=== PATIENT | male | born 1960 | race African-American/Black ===

== ENCOUNTER 2016-08-25 17:20 | Emergency (ER) | payer OTHER ==
[~2016-08-25 17:20] MED LIST: Z.0.NO CURRENT MEDS
--- NOTE | 2016-08-25 17:29 | PD ---
Physical Exam Time Seen by Provider: 17:27 Narrative 55yo M c/o R upper arm pain x 3 weeks. Denies injury. Patient seen in triage. VS reviewed. Awaiting bed placement. MDM Supervised Visit with GERSON: Karla Rosales Aug 25, 2016 17:29
[2016-08-25 17:33] VITALS: BP 153/73; PULSE 95; RESP 18; TEMP 98.3; O2SAT 97
--- NOTE | 2016-08-25 18:47 | PD ---
HPI . Right arm pain for 3 weeks, worse over the past 3 days Chief Complaint: Abnormal Results Time Seen by Provider: 18:47 Travel History International Travel<30 days: No Contact w/Intl Traveler<30days: No Traveled to known affect area: No History of Present Illness HPI 55-year-old male who is a poor historian here with complaints of right upper extremity for the past 3 weeks. Patient tells me that he does not recall an exact injury, however 3 days ago he was trying to close his car door and there was some kind of issue with closing in and he somehow may have hurt his arm. He is saying this has been going on for 3 weeks and he's had swelling and pain in this upper extremity. He rates the pain as severe and denies any radiation other than from the right shoulder down to the tips of the fingers. He denies any chest pain or shortness of breath. He has no other complaints. His cc states he is here for abnormal labs and he tells me he is not here for anything other than right arm pain. Review of records show that he was sent Dr. Hollingsworth for abnormal CT scan with some masses. [facility] Past Medical History Diminished Hearing: No Respiratory: Yes (PNEUMONIA) Immunizations Current: No Past Surgical History Other Surgery: Yes (RT 4RTH DIGIT SX) Social History Alcohol Use: Yes (4 PACKS OF BEER PER DAY) Tobacco Use: Yes (4 PPD) Substance Use: No (DENIES ) Allergies-Medications (Allergen,Severity, Reaction): Coded Allergies: No Known Allergies (Verified , 08/25/16) Reported Meds & Prescriptions Reported Meds & Active Scripts Active Flexeril (Cyclobenzaprine HCl) 5 Mg Tab 5 Mg PO TID Reported Vitamin B-1 (Thiamine HCl) 100 Mg Tab 100 Mg PO DAILY Lasix (Furosemide) 20 Mg Tab 20 Mg PO DAILY Vitamin B-12 (Cyanocobalamin) 1,000 Mcg Tab 1,000 Mcg PO DAILY Folic Acid 1 Mg Tablet 1 Mg PO DAILY Review of Systems ROS Limitations: Poor Historian General / Constitutional: No: Fever Eyes: No: Visual changes HENT: No: Headaches Cardiovascular: No: Chest Pain or Discomfort Respiratory: No: Shortness of Breath Gastrointestinal: No: Abdominal Pain Genitourinary: No: Dysuria Musculoskeletal: Positive: Pain (right arm pain) Skin: No Rash Neurologic: No: Weakness Psychiatric: No: Depression Endocrine: No: Polydipsia Hematologic/Lymphatic: No: Easy Bruising Physical Exam Exam Limitations: Poor Historian Narrative GENERAL: AAO x 3, no acute distress, Well-nourished, well-developed patient. SKIN: Warm and dry. No visible rashes or bruising. HEAD: Normocephalic and atraumatic. EYES: No scleral icterus. No injection or drainage. EOM intact, PERRLA ENT: No nasal drainage noted. Mucous membranes pink. Airway patent. NECK: Supple, trachea midline. No JVD. CARDIOVASCULAR: Regular rate and rhythm without murmurs, gallops, or rubs. RESPIRATORY: Breath sounds equal bilaterally. No accessory muscle use. No rhonchi or rales. GASTROINTESTINAL: Abdomen soft, non-tender, nondistended. no rebound or guarding. EXTREMITIES: No cyanosis or edema. right arm: Very tender to touch, patient slaps my hand with the slightest touch, refuses to move or allow me to passively move. pulses normal. BACK: Nontender without obvious deformity. No CVA tenderness. NEURO: CN II-12 intact, credit operations processor strength normal in left UE and LE 5/5, no focal deficits PSYCH: AAO x 3, normal affect. Data Data Last Documented VS Vital Signs Date Time Temp Pulse Resp B/P Pulse Ox O2 Delivery O2 Flow Rate FiO2 08/25/16 17:33 98.3 95 18 153/73 97 Orders Elbow, Complete (4 Vws) (08/25/16 18:52) Forearm (2vws) (08/25/16 18:52) Shoulder, Complete (>2vws) (08/25/16 18:52) Ketorolac Inj (Toradol Inj) (08/25/16 19:15) Us Arm Venous Doppler (08/25/16 19:54) Support Splint (08/25/16 20:16) MDM Medical Decision Making Medical Screen Exam Complete: Yes Emergency Medical Condition: Yes Medical Record Reviewed: Yes Differential Diagnosis Acute on chronic arm pain, DVT of the upper extremity, cellulitis Narrative Course 55-year-old male here with complaints of right upper extremity pain. He is a very poor historian and cannot give good details as to what exactly he is experiencing. I will go ahead and check x-rays to rule out any type of bony abnormality. I will also check ultrasound to rule out any form of DVT. In the meantime I provided him with Toradol for pain. I have looked into the computer system and we cannot find any imaging with abnormal masses. MRI on July 13 shows full thickness tear of supraspinatus tendon tear. There is also a retracted proximal biceps tendon tear. These all explain patient's continued arm pain. US canceled after MRI results found. Discussed with Dr. Goldstein and she is in agreement. 1953: I went into the room to discuss with patient and US was being completed. I discussed MRI with the patient and he says no one ever explained this to him. He just wants something for pain tonight. When asked further details about the "masses," he says that is being handled by the "[facility]" at the [facility] and he is not here for anything related to that. He is here for his arm pain. This was discussed in the presence of the US tech and Nurse Osiris. Last Impressions Shoulder X-Ray 08/25/161851 Signed Impressions: Service Date/Time: August 19:29 - CONCLUSION: 1. 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 No fracture or subluxation. 2. Incidentally seen right upper lobe pneumonia. Clinical correlation and followup recommended. Followup chest radiographs are recommended in a few weeks to confirm resolution. Vinh Lora MD Radius/Ulna X-Ray 08/25/161851 Signed Impressions: Service Date/Time: August 19:22 - CONCLUSION: Normal radiographic appearance of the right forearm. Vinh Lora MD Elbow X-Ray 08/25/161851 Signed Impressions: Service Date/Time: August 19:23 - CONCLUSION: No fracture, subluxation or joint effusion of the right elbow. Enthesopathic changes of the lateral epicondyle. Vinh Lora MD US negative for DVT. There is an incidental finding of Right upper lobe PNA. Patient denies any respiratory symptoms. He does report possible lung cancer that is being followed by the "[facility]." Since he is asymptomatic I will hold on treatment. I do recommend outpatient f/ u and will include this in his discharge instruction. I have had a lengthy discussion with him regarding f/u care. I am providing him with muscle relaxers and a sling for support. He needs to see his PCP and ortho for f/u. I have stressed f/u on his possible lung cancer. Patient verbalized understanding of instructions, questions were answered, and thanked me for their care. I advised them if their condition worsens, please return to the nearest emergency room for further care. Diagnosis Primary Impression: Rotator cuff injury Qualified Code: S46.001A - Rotator cuff injury, right, initial encounter Additional Impression: PNA (pneumonia) Qualified Code: J18.1 - Pneumonia of right upper lobe due to infectious organism Referrals: [facility] Patient Instructions: General Instructions Additional Instructions: Please return to emergency department if your symptoms return or worsen. Follow up with your primary care provider. Take medications as prescribed. There was an incidental finding of possible right upper lobe pneumonia on your x -ray, since you do not have any symptoms we will have you have this followed up by your primary care provider at the [facility]. Please continue to go to the [facility] for your workup regarding the possibility of lung cancer. Please see orthopedic for your rotator cuff issues as we discussed. Muscle relaxers can cause drowsiness. Do not drive, swim or operate heavy machinery while using these medications. Med/Other Pt SpecificInfo: Prescription(s) given Scripts Cyclobenzaprine (Flexeril)5 Mg Tab5 Mg PO TID #21 TAB Prov:Carine Goldstein DO 08/25/16 Disposition: 01 DISCHARGE HOME Condition: Stable Tammy Moncada Aug 25, 2016 18:47
[2016-08-25] MEDS ORDERED: FOLI1TAB6 PO (19:07)
[2016-08-25] MEDS ORDERED: FURO1TAB62 PO (19:07)
[2016-08-25] MEDS ORDERED: VITA10002 PO (19:07)
[2016-08-25] MEDS ORDERED: VITA100T54 PO (19:07)
[2016-08-25] MEDS ORDERED: KETOROLAC TROMETHAMINE 60 MG/2 ML (IM) VIAL IM ONE (19:15)
--- NOTE | 2016-08-25 19:45 | RADRPT ---
EXAM DATE/TIME: 08/25/2016 19:23 [facility] COMPARISON: No previous studies available for comparison. INDICATIONS : Right arm pain with no trauma. MEDICAL HISTORY : None. SURGICAL HISTORY : None. ENCOUNTER: Initial ACUITY: 1 day PAIN SCORE: 10/10 LOCATION: Right upper extremity FINDINGS: Bones of the right elbow are intact and normally aligned. Mild, chronic appearing sprain/hypertrophic changes seen of the lateral epicondyle. No perceptible joint effusion. Soft tissues have a normal ra diographic appearance. CONCLUSION: No fracture, subluxation or joint effusion of the right elbow. Enthesopathic changes of the lateral e picondyle. Vinh Lora MD on August 25, 2016 at 19:42 Board Certified Radiologist. This report was verified electronically.
--- NOTE | 2016-08-25 19:47 | RADRPT ---
EXAM DATE/TIME: 08/25/2016 19:29 [facility] COMPARISON: No previous studies available for comparison. INDICATIONS : Right arm pain with no trauma. MEDICAL HISTORY : None. SURGICAL HISTORY : None. ENCOUNTER: Initial ACUITY: 1 day PAIN SCORE: 9/10 LOCATION: Right upper quadrant FINDINGS: No fracture or subluxation seen of the right shoulder. Osteoarthritis noted, moderate of the acromioc lavicular joint and mild to moderate of the glenohumeral joint. There is very mild subacromial spurri ng also noted. Patchy subchondral sclerosis seen of the humeral head suggesting avascular necrosis. Focal consolidations seen in the right upper lobe. CONCLUSION: 1. 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 No fracture or subluxation. 2. Incidentally seen right upper lobe pneumonia. Clinical correlation and followup recommended. [facility] chest radiographs are recommended in a few weeks to confirm resolution. Vinh Lora MD on August 25, 2016 at 19:43 Board Certified Radiologist. This report was verified electronically.
--- NOTE | 2016-08-25 19:48 | RADRPT ---
EXAM DATE/TIME: 08/25/2016 19:22 [facility] COMPARISON: No previous studies available for comparison. EXTERNAL COMPARISON : INDICATIONS : Right arm pain with no hostory of trauma. MEDICAL HISTORY : None. SURGICAL HISTORY : None. ENCOUNTER: Initial ACUITY: 1 day PAIN SCORE: 10/10 LOCATION: Right upper extremity FINDINGS: Two view examination of the right forearm demonstrates no evidence of fracture or dislocation. Bony mineralization is normal. The soft tissue structures are intact. CONCLUSION: Normal radiographic appearance of the right forearm. iVnh Lora MD on August 25, 2016 at 19:46 Board Certified Radiologist. This report was verified electronically.
--- NOTE | 2016-08-25 20:03 | RADRPT ---
EXAM DATE/TIME: 08/25/2016 19:33 [facility] COMPARISON: No previous studies available for comparison. INDICATIONS : Right arm pain. MEDICAL HISTORY : Pneumonia. Tobacco use. SURGICAL HISTORY : Right fourth digit surgery. ENCOUNTER: Initial ACUITY: 1 month PAIN SCORE: 10/10 LOCATION: Right arm. FINDINGS: There is spontaneous flow documented in the brachial, basilic, cephalic, axillary, and subclavian vei ns. The vessels are compressible and augmentation response is documented. No filling defects are se en. The flow is phasic with respiration. Direction of flow in the jugular vein is caudal. CONCLUSION: No DVT of the right upper extremity. Vinh Lora MD on August 25, 2016 at 20:01 Board Certified Radiologist. This report was verified electronically.
[2016-08-25] MEDS ORDERED: CYCL5TAB PO (20:16)
== END 2016-08-25 20:47 | disposition home or self-care (01) ==
LOC: NEPD 17:20
DX: S46.001A Unspecified injury of muscle(s) and tendon(s) of the rotator cuff of right shoulder, initial encounter (principal); J18.9 Pneumonia, unspecified organism; F17.210 Nicotine dependence, cigarettes, uncomplicated; X58.XXXA Exposure to other specified factors, initial encounter; Y93.9 Activity, unspecified; Y92.9 Unspecified place or not applicable
CPT/HCPCS: 73030; 73080; 73090; 93971; 96372; 99285; J1885